=== PATIENT | female | born 1990 | race Caucasian/White ===

== ENCOUNTER 2019-03-05 12:15 | Outpatient (CLI) | payer OTHER ==
[~2019-03-05] VITALS: Ht 167.6 cm; Wt 99.9 kg
[2019-03-05 13:03] VITALS: BP 129/70; PULSE 68; RESP 18; Ht 167.6 cm; Wt 99.9 kg
[2019-03-05] MEDS ORDERED: PNV11TAB PO (13:05)
[2019-03-05] MEDS ORDERED: LACTATED RINGER'S 1,000 ML IV ONE ×2 (13:30→14:30)
--- NOTE | 2019-03-05 17:14 | PN ---
Triage Information Date/Time Reason for visit: Possible leakage of fluid Weeks of Gestation 38 weeks and 4 days /Para Diabetes: none Hypertention: none Objective Vital Signs Date Temp Pulse Resp B/P (MAP) Pulse Ox O2 O2 Flow FiO2 Time Delivery Rate 03/05/19 98.5 68 18 129/70 13:03 (89) Heart Rate: 140's Contractions: None Results/Medications Result Diagram: 03/05/19 1345 Results 24 hrs Laboratory Tests Test 03/05/19 12:30 03/05/19 13:45 Membranes Rupture NEGATIVE White Blood Count 8.9 Red Blood Count 3.67 L Hemoglobin 10.3 L Hematocrit 30.5 L Mean Corpuscular Volume 83.1 Mean Corpuscular Hemoglobin 28.1 L Mean Corpuscular Hemoglobin Concent 33.8 Red Cell Distribution Width 14.5 Platelet Count 229 Mean Platelet Volume 10.6 H Immature Granulocytes % 0.600 H Neutrophils % 78.5 H Lymphocytes % 15.4 Monocytes % 4.5 Eosinophils % 0.9 Basophils % 0.1 Nucleated Red Blood Cells % 0.0 Immature Granulocytes # 0.050 H Neutrophils # 7.0 Lymphocytes # 1.4 Monocytes # 0.4 Eosinophils # 0.1 Basophils # 0.0 Nucleated Red Blood Cells # 0.0 Disposition: Discharge Assessment/Plan 29 years old G3, P2 with single intrauterine at 38 weeks and 4 days complaining of possible leakage of fluid.She states good movement. She denies nausea, vomiting, shortness of breath, chest pain, headache, visual changes, vaginal bleeding. -FHR: No sign of metabolic acidosis- Category I -Contractions: None -Speculum exam performed, no leakage of fluid or gush gush of fluid seen. Nitrazine equivocal, ROM plus negative -SVE: 2/50/-2/cephalic/intact membrane. No cervical changes with 2 hours interval -ultrasound performed: Normal MIKI, BPP 8 out of 8 -Symptoms and sign of labor, preeclampsia, kick count discussed with patient, she voiced understanding. All of her questions answered. -Patient was discharged home in stable condition with the appropriate discharge instructions provided. I would like patient to have close follow-up with her primary physician or outpatient clinic in 1-2 days or return to triage for worsening symptoms or any other urgent concerns. LORENZO MADERA March 05, 2019 17:14
--- NOTE | 2019-03-05 17:59 | TRIAGE ---
OB Triage Datetime Report Generated by CPN: 03/05/2019 17:58 Datetime: 03/05/2019 16:34 Stage of : OB Triage Datetime: 03/05/2019 16:28 Labor Evaluation Frequency: 7-8 Monitor Mode: External Duration (sec)2399: 50-60 Quality: Mild Pattern: Normal: <= 5 Contractions in 10 Minutes Resting Tone [place]: Relaxed Monitor Mode: External US Variability: Moderate 6-25 bpm Accelerations: 10X10 Decelerations: None Category: Category I Pain Assessment Pain Scale: 1 Pain Presence: Intermittent Pain Type: Cramping Pain Location: Perineum Pain Goal: 3 Pain Relief Measures: Comfort Measures Datetime: 03/05/2019 16:16 Exam By: S CRISTOFER Datetime: 03/05/2019 16:11 Stage of : OB Triage Datetime: 03/05/2019 16:02 Stage of : OB Triage Datetime: 03/05/2019 15:31 Labor Evaluation Frequency: 12-15 Monitor Mode: External Quality: Mild Pattern: Normal: <= 5 Contractions in 10 Minutes Resting Tone [place]: Relaxed Heart Rate FHR Baseline Rate: 115 Monitor Mode: External US Variability: Moderate 6-25 bpm Accelerations: 10X10 Decelerations: None Category: Category I Pain Assessment Pain Scale: 0 Pain Presence: Intermittent Pain Type: Cramping Pain Location: Abdomen Pain Goal: 3 Pain Relief Measures: Comfort Measures Datetime: 03/05/2019 14:32 Labor Evaluation Frequency: 7-10 Monitor Mode: External Duration (sec)2399: 50-70 Quality: Mild Pattern: Normal: <= 5 Contractions in 10 Minutes Resting Tone [place]: Relaxed Heart Rate FHR Baseline Rate: 125 Monitor Mode: External US Variability: Moderate 6-25 bpm Accelerations: 10X10 Decelerations: None Category: Category I Pain Assessment Pain Scale: 0 Pain Presence: Intermittent Pain Type: Cramping Pain Location: Abdomen Pain Goal: 3 Pain Relief Measures: Comfort Measures Datetime: 03/05/2019 13:29 Labor Evaluation Frequency: 7-8 Monitor Mode: External Duration (sec)2399: 50-70 Quality: Mild Pattern: Normal: <= 5 Contractions in 10 Minutes Resting Tone [place]: Relaxed Heart Rate FHR Baseline Rate: 125 Monitor Mode: External US Variability: Moderate 6-25 bpm Accelerations: 10X10 Decelerations: None Category: Category I Pain Assessment Pain Scale: 0 Pain Presence: Intermittent Pain Type: Cramping Pain Location: Abdomen Pain Goal: 3 Pain Relief Measures: Comfort Measures Datetime: 03/05/2019 13:20 Stage of : OB Triage Datetime: 03/05/2019 13:06 Stage of : OB Triage Datetime: 03/05/2019 12:30 Stage of : OB Triage Assessment Type: Triage Maternal Assessment Level of Consciousness: Fully Conscious DTR's/Clonus: DTRs 2+; No Clonus Headache: Denies Blurred Vision: No Respiratory Effort: Unlabored; Regular Rhythm; Equal Expansion Breath Sounds, Left: Clear and Equal Breath Sounds, Right: Clear and Equal Nausea/Vomiting: Denies RUQ Epigastric Pain: Denies Facial Edema: None Temperature Route: Axillary Fall Risk Assessment History of Falling: (0) No Secondary Diagnosis: (0) No Ambulatory Aid: (0) Bedrest/Nurse Assist IV Therapy: (0) No Gait: (0) Normal/Bedrest/Immobile Mental Status: (0) Oriented to Own Ability Fall Score: 0 Fall Risk Score Definition: No Risk: No action required Labor Evaluation Frequency: 0 Monitor Mode: External Pattern: Normal: <= 5 Contractions in 10 Minutes Resting Tone [place]: Relaxed Interventions: Sterile Vaginal Exam Heart Rate FHR Baseline Rate: 135 Monitor Mode: External US Variability: Moderate 6-25 bpm Accelerations: 10X10 Decelerations: None Category: Category I Pain Assessment Pain Scale: 0 Pain Presence: None/Denies Pain Type: N/A Pain Goal: 3 Pain Relief Measures: Comfort Measures Vaginal Exam Dilatation (cms): 2.0 Effacement (%): 50 Station: -2 Exam By: Nati CRISTOFER Nitrazine: EQUIVOCAL Datetime: 03/05/2019 12:29 EGA: 38.4 Datetime: 03/05/2019 12:28 Time of Arrival: 03/05/2019 12:05 Arrived By: Ambulatory Arrived From: Home Chief Complaint: C/O POSS SROM AT 7PM LAST NIGHT, DENIES BLEEDING, AND OCCAS UC'S Movement: Present Contractions: Occasional Rupture of Membranes: Unsure Vaginal Bleeding: None Vaginal Discharge: Denies Recent Sexual Intercouse: Denies Abdominal Trauma: Not Applicable Patient Complaints: Cramping Time Provider Notified: 03/05/2019 13:20 Provider Notified: PENELOPE Initial Plan: MONITOR, NITRAZINE, ROM PLUS, EFW, MIKI, BPP, CBC, IV HYDRATION
== END 2019-03-05 17:00 | disposition home or self-care (01) ==
LOC: L-D 12:15 → OBT 12:15
PROVIDERS: ATTEND Obstetrics & Gynecology
DX: O41.93X0 Disorder of amniotic fluid and membranes, unspecified, third trimester, not applicable or unspecified (principal); Z3A.38 38 weeks gestation of pregnancy
CPT/HCPCS: 36415; 76815; 76818; 84112; 85025; 96360; 96361; G0463; J7120

== ENCOUNTER 2019-03-09 20:47 | Inpatient (IN) | payer OTHER ==
[~2019-03-09] VITALS: Ht 167.6 cm; Wt 102.7 kg
[~2019-03-09 20:47] MED LIST: PNV11TAB PO
[2019-03-09 21:25] VITALS: Ht 167.6 cm; Wt 102.7 kg
[2019-03-09 21:26] VITALS: BP 124/68; PULSE 80; RESP 18
--- NOTE | 2019-03-10 05:36 | HP ---
Date/Time of Note Date/Time of Note DATE: 03/10/19 TIME: 05:32 OB - History Hx of Present Free Text/Dictation 29-year-old 3 para 2 at 39 weeks and 1 day of gestation with estimated date of delivery March 15, 2019 Patient presents with chief complaint of uterine contractions She reports positive movement She denies any vaginal bleeding or leaking fluid GBS status is negative Estimated Due Date: March 15, 2019 : 3 Para: 2 Care: Good Care Past Family/Social History * Past Medical, Surgical, Family and Obstetric Histories reviewed from chart. OB Admission Exam Vital Signs Vital Signs Vital Signs Date Temp Pulse Resp B/P (MAP) Pulse Ox O2 O2 Flow FiO2 Time Delivery Rate 03/09/19 98.5 80 18 124/68 Room Air 21:26 (86) Physical Exam HEENT: WNL Heart: Rhythm Normal Lungs: Clear, Equal Abdomen: WNL Extremities: Normal Reflexes: Normal Cervical Dilatation: 2cm Effacement: 50% Station: -3 Membranes: Intact Heart Rate: 140's Accelerations: Accelerations Present Decelerations: No Decelerations Varibility: Moderate Contractions on Admission: 6-10 Minutes Apart Intensity: Mild Last 72 hours Lab Results PROCEDURE: Limited OB ultrasound CLINICAL INDICATION: Contractions. TECHNIQUE: Limited transabdominal obstetrical sonographic evaluation was performed to assess the amniotic fluid volume. COMPARISON: US PELVIS 03/05/2019 FINDINGS: There is a single living intrauterine gestation with cephalic presentation and fundal grade 2-3 placenta. There is no evidence of placenta previa or abruption. heart rate is 141 beats per minute. Amniotic fluid index is 11.5 cm, within normal limits. IMPRESSION: 1. Normal amniotic fluid index. RPTAT:HAJM Physician Ryan Date Time Electronically viewed and signed by Physician Ryan on 03/09/2019 23:48 RM/ CC: ALFONSO NEGRETE MD [phone] AMENDMENT: 03/10/2019 5:01:04 AM Jesus Manuel Acevedo M.d There is a voice recognition error in the report; the structures were not evaluated on the current exam, and which should read as follows: Structures: Not evaluated. PROCEDURE: US OB CLINICAL INDICATION: Third trimester with contractions. Estimated weight follow-up. TECHNIQUE: Multiple transabdominal sonographic images of the pelvis and gravid uterus were obtained. The images were reviewed on a PACS workstation. COMPARISON: US PELVIS 03/09/2019; US PELVIS 03/05/2019; US 03/05/2019 FINDINGS: Cervix: Not evaluated Gestation: Single viable intrauterine gestation. Cardiac activity: 154 beats per minute. Presentation: Cephalic Placenta: Location: Fundal Appearance: No previa or abruption. Amniotic Fluid: Visually appears low, where included; MIKI not evaluated Measurements: BPD = 9.33 cm, 38 weeks 0 days HC = 34.47 cm, 39 weeks 6 days AC = 36.84 cm, 40 weeks 5 days FL = 7.95 cm, 40 weeks 5 days Gestational Age: AUA estimated gestational age: . 39 weeks 6 days LMP estimated gestational age: 39 weeks 2 days AUA estimated date of delivery: 03/11/2019 The EFW = 4025+/-604 g (8 lb 14 oz +/- 1 lb 5 oz), 88.7 %ile based on Hadlock criteria Structures: The upper and lower limbs, four-chamber heart, intracranial contents, spine, stomach, kidneys, bladder, nose and lips, three-vessel cord, and cord insertion are visualized and without abnormality. IMPRESSION: 1. Single viable intrauterine gestation of 39 weeks 6 days, with estimated delivery date 03/11/2019, by ultrasound criteria. 2. Estimated weight 4025+/-604 g (8 lb 14 oz +/- 1 lb 5 oz), 88.7 %ile based on Hadlock criteria 3. Amniotic fluid subjectively appears low although was not fully evaluated nor was MIKI calculated. RPTAT: HSAF Akhil Acevedo Physician Date Time Electronically viewed and signed by Physician Anna on 03/10/2019 05:02 RF/ CC: BLAYNE DONNELLY MD [phone] OB Assessment/Plan Reason for admission: induction of labor (Induction/augmentation for suspected macrosomia) Induction Method: per Pitocin Protocol Other plan: Admit to labor and delivery Induction/augmentation per protocol Pain meds as needed Copies To: CC: ALFONSO NEGRETE MD ; BLAYNE DONNELLY MD March 10, 2019 05:36
[2019-03-10] MEDS ORDERED: METHYLERGONOVINE 0.2 MG INJ IM PRN (07:00)
[2019-03-10] MEDS ORDERED: BUTORPHANOL 2 MG INJ IV PRN (07:00)
[2019-03-10] MEDS ORDERED: CARBOPROST 250 MCG INJ IM PRN (07:00)
[2019-03-10] MEDS ORDERED: MISOPROSTOL 200 MCG TAB PR PRN (07:00)
[2019-03-10] MEDS ORDERED: OXYTOCIN 30 UNITS/LR 500 ML IV PRN (07:00)
[2019-03-10] MEDS ORDERED: OXYTOCIN 30 UNITS/LR 500 ML IV SCH ×3 (07:00→10:30)
[2019-03-10] MEDS ORDERED: LIDOCAINE 1% (MPF) 30 ML INJ INJ PRN (07:00)
[2019-03-10] MEDS: LACTATED RINGER'S 1,000 ML IV SCH ×3 (10:50→20:11)
--- NOTE | 2019-03-10 19:13 | PREAC ---
Date/Time of Note Date/Time of Note DATE: 03/10/19 TIME: 19:12 Anesthesia Eval and Record Evaluation Time Pre-Procedure Interview DATE: 03/10/19 TIME: 19:12 Age 29 Sex female NPO: 8 hrs Preoperative diagnosis intrauterine Planned procedure labor epidural Past Medical History Past Medical History: Includes : : (3), Para: (2), Gestational age: (39+) Surgery & Anesthesia Issues No known issue Meds Anticoagulation: No Beta Carly within 24 hr: No Reason Beta Carly not given: Pt. not on B-Carly Reported Medications [id number] ( 19) 1 Each Tablet, 1 TAB PO DAILY, TAB 03/05/19 Current Medications Lactated Ringer's 1,000 ml @ 125 mls/hr Q8H IV Last administered on 03/10/19at 13:54; Admin Dose 125 MLS/HR; Start 03/10/19 at 06:33 Butorphanol Tartrate (Stadol) 2 mg Q2H PRN IV .PAIN; Start 03/10/19 at 07:00 Lidocaine (Xylocaine 1% (Mpf)) 30 ml ONCE PRN INJ .EPISIOTOMY; Start 03/10/19 at 07:00 Oxytocin/Lactated Ringer's 500 ml @ 500 mls/hr ONCE POST IV ; Start 03/10/19 at 07:00 Oxytocin/Lactated Ringer's 500 ml @ 125 mls/hr POST IV ; Start 03/10/19 at 07:00 Ibuprofen (Motrin) 600 mg ONCE PRN PO .PAIN 1-5; Start 03/10/19 at 07:00 Oxytocin/Lactated Ringer's 500 ml @ 0 mls/hr ONCE PRN IV .VAGINAL BLEEDING; Start 03/10/19 at 07:00 Methylergonovine Maleate (Methergine) 0.2 mg ONCE PRN IM .VAGINAL BLEEDING; Start 03/10/19 at 07:00 Carboprost Tromethamine (Hemabate) 250 mcg ONCE PRN IM .VAGINAL BLEEDING; Start 03/10/19 at 07:00 Misoprostol (Cytotec) 1,000 mcg ONCE PRN [place] .VAGINAL BLEEDING; Start 03/10/19 at 07:00 Oxytocin/Lactated Ringer's 500 ml @ 0 mls/hr FOR AUGMENTATION IV Last administered on 03/10/19at 10:52; Admin Dose 1 MLS/HR; Start 03/10/19 at 10:30 Meds reviewed: Yes Allergies Coded Allergies: No Known Allergy (Unverified , 03/09/19) Allergies Reviewed: Yes Labs/Studies Labs Reviewed: Reviewed by anesthesiologist Result Diagram: 03/10/19 0700 Laboratory Tests 03/10/19 07:00 Blood Bank Test 03/10/19 07:00 Antibody Screen NEGATIVE Blood Type B POSITIVE Rh Immune Globulin Candidate NO test: N/A Pre-procedure Exam Last vitals Vital Signs Date Temp Pulse Resp B/P (MAP) Pulse Ox O2 O2 Flow FiO2 Time Delivery Rate 03/09/19 98.5 80 18 124/68 Room Air 21:26 (86) Airway: Adequate mouth opening, Adequate thyromental dist Mallampati: Mallampati II Teeth: Normal Lung: Normal Heart: Normal ASA Physical Status ASA physical status: 2 Emergency: None Planned Anesthetic Neuraxial: Epidural Planned Pain Management Epidural, Parenteral pain med Pre-operative Attestations Prior to commencing anesthesia and surgery, the patient was re-evaluated, there was verification of: *The patient's identity *The results of appropriate recent lab work and preoperative vital signs *The above evaluation not changing prior to induction *Anesthetic plan, risk benefits, alternative and complications discussed with patient/family; questions answered; patient/family understands, accepts and wishes to proceed. ASHWIN ANN MD March 10, 2019 19:13
[2019-03-10] MEDS ORDERED: FENTAnyl 2MCG/ML-ROPIV 0.2% 100 ML ONE (19:20)
[2019-03-10] MEDS ORDERED: NALOXONE (0.4 MG/ML) INJ IV PRN (19:30)
[2019-03-10] MEDS ORDERED: DIPHENHYDRAMINE 50 MG INJ IV PRN (19:30)
[2019-03-10] MEDS ORDERED: ONDANSETRON 4 MG INJ IV PRN (19:30)
[2019-03-10] MEDS ORDERED: ROPIVACAINE 0.2% 100ML BAG EPI SCH (19:30)
--- NOTE | 2019-03-10 19:52 | PAC ---
Date/Time of Note Date/Time of Note DATE: 03/10/19 TIME: 19:51 Post-Anesthesia Notes Post-Anesthesia Note Last documented vital signs Vital Signs Date Temp Pulse Resp B/P (MAP) Pulse Ox O2 O2 Flow FiO2 Time Delivery Rate 03/09/19 98.5 80 18 124/68 Room Air 21:26 (86) Activity: WNL Respiratory function: WNL Cardiovascular function: WNL Mental status: Baseline Pain reasonably controlled: Yes Hydration appropriate: Yes Nausea/Vomiting absent: Yes Comments BP: 128/70 HR: 88 RR: 16 T: 98 SaO2: 99% ASHWIN ANN MD March 10, 2019 19:52
[2019-03-11] MEDS: LACTATED RINGER'S 1,000 ML IV SCH (00:01)
[2019-03-11] MEDS ORDERED: FENTAnyl 2MCG/ML-ROPIV 0.2% 100 ML BAG EPI SCH (02:00)
[2019-03-11] MEDS ORDERED: FENTAnyl 2MCG/ML-ROPIV 0.2% 100 ML ONE (02:11)
[2019-03-11] MEDS: IBUPROFEN 600 MG TAB PO PRN ×2 (04:41→17:46)
[2019-03-11] MEDS ORDERED: OXYTOCIN 30 UNITS/LR 500 ML IV SCH (06:07)
[2019-03-11] MEDS: LACTATED RINGER'S 1,000 ML IV* SCH ×3 (06:07→22:07)
[2019-03-11] MEDS ORDERED: CARBOPROST 250 MCG INJ IM PRN (06:30)
[2019-03-11] MEDS ORDERED: NA PHOSPHATE/BIPHOS 133 ML ENEMA PR PRN (06:30)
[2019-03-11] MEDS ORDERED: METHYLERGONOVINE 0.2 MG INJ IM PRN (06:30)
[2019-03-11] MEDS ORDERED: ZOLPIDEM 5 MG TAB PO PRN (06:30)
[2019-03-11] MEDS ORDERED: MAGNESIUM HYDROXIDE 30ML CUP PO PRN (06:30)
[2019-03-11] MEDS ORDERED: METHYLERGONOVINE 0.2 MG TAB PO PRN (06:30)
[2019-03-11] MEDS ORDERED: MISOPROSTOL 200 MCG TAB PR PRN (06:30)
[2019-03-11] MEDS ORDERED: HYDROCODONE/APAP (5/325) TAB PO PRN ×2 (06:30)
[2019-03-11] MEDS ORDERED: IBUPROFEN 600 MG TAB PO PRN (06:30)
[2019-03-11] MEDS ORDERED: DIPHENHYDRAMINE 25 MG CAP PO PRN (06:30)
[2019-03-11] MEDS ORDERED: OXYTOCIN 30 UNITS/LR 500 ML IV PRN (06:30)
[2019-03-11] MEDS ORDERED: ONDANSETRON 4 MG INJ IV PRN (06:30)
[2019-03-11 06:41] VITALS: BP 134/73; PULSE 67; RESP 19
[2019-03-11 08:05] VITALS: BP 135/67; PULSE 75; RESP 18
[2019-03-11] MEDS: WITCH HAZEL/GLYCERIN PAD PR PRN (09:18)
[2019-03-11] MEDS: LANOLIN HPA 1 PKT TOP PRN (09:18)
[2019-03-11] MEDS: SENNA/DOCUSATE NA (8.6MG/50MG) TAB PO SCH ×2 (09:18→21:50)
[2019-03-11] MEDS: BENZOCAINE 20% 56 ML SPRAY TOP PRN (09:19)
[2019-03-11 12:15] VITALS: BP 122/74; PULSE 68; RESP 20
[2019-03-11 16:30] VITALS: BP 127/68; PULSE 74; RESP 20
[2019-03-11 20:40] VITALS: BP 115/66; PULSE 72; RESP 17
[2019-03-12 04:00] VITALS: BP 130/76; PULSE 74; RESP 18
--- NOTE | 2019-03-12 05:53 | PREOPHP ---
DATE OF ADMISSION: 03/10/2019 HISTORY OF PRESENT ILLNESS: This is a 29-year-old lady, 3, para 2, her EDC is 03/15/2019, at 39 and 1/7 weeks , admitted to labor and delivery area in early labor. She had car e at Dr. Augustine's office at [facility] and the care was uneventful. PAST PERSONAL HISTORY: No history of diabetes, TB, nor allergy. SOCIAL HISTORY: Patient does not smoke. She does not drink. MEDICATIONS: She does not take any drugs except her iron and vitamins. GYNECOLOGIC HISTORY: She had menarche at the age of 13, every 28 days interval, 3 to 4 days duration , and moderate in amount. FAMILY HISTORY: Noncontributory. She is 3, para 2. She had 2 normal deliveries. The largest baby weighed 7 pounds 11 ounces. REVIEW OF SYSTEMS: CARDIOVASCULAR: No chest pains. RESPIRATORY: No cough. GASTROINTESTINAL: No diarrhea, no vomiting. GENITOURINARY: No dysuria. PHYSICAL EXAMINATION: GENERAL: Reveals a conscious, coherent lady and in not acute distress. VITAL SIGNS: Her blood pressure 120/80, pulse rate 80 per minute, respirations 16 per minute. BREASTS, HEART AND LUNGS: Within normal limits. ABDOMEN: Soft, fundic height 39 cm. heart tones 140 per minute. PELVIC: Done on admission by nurse revealed the cervix to be 2 cm dilated, thick, station -2 in ceph alic presentation with the bag of water intact. EXTREMITIES: No pedal edema. ADMITTING DIAGNOSIS: A 39 and 1/7 weeks intrauterine in early labor. The patient had an O B ultrasound and the estimated weight was about 4025 grams, 8 pounds 14 ounces. The plans of abilio leyva were explained to the patient as to go for vaginal delivery. The risks, benefits, and altern atives to vaginal delivery, a was explained to the patient. The risks of explain ed. The risks of shoulder dystocia explained to the patient as well. The patient wanted to go for v aginal delivery, so the patient was observed followed by Pitocin augmentation at 3:30 p.m.. On 03/11, I reevaluated the patient. She was 3 cm dilated, 90% effaced, station 0 with the bag of water intact and bulging, so she had artificial rupture of membranes. scalp electrode and IUPC was inserted. She was continued on Pitocin augmentation and she was observed closely. During the night, she was noted to have some variable deceleration, so that she was given amnioinfusion. She received labor epidural as well and the patient progressed well. The variable deceleration disappeared with the amnioinfusion. Dictated By: ALFONSO NEGRETE MD NS/NTS Conf#: [id number] DID#: [id number] CC: JASON AUGUSTINE MD;*EndCC*
[2019-03-12] MEDS: LACTATED RINGER'S 1,000 ML IV* SCH ×2 (06:07→14:07)
--- NOTE | 2019-03-12 07:44 | OPR ---
DATE OF OPERATION: 03/11/2019 OPERATION PERFORMED: This is a 29-year-old lady, 3, para 2, EDC 03/15/2019 at 39-1/7 weeks, admitted in early labor. HISTORY OF PRESENT ILLNESS: See dictated history and physical. PHYSICAL EXAMINATION: See dictated history and physical. ADMITTING DIAGNOSIS: A 39 and 1/7 weeks intrauterine in early labor. PLANS OF DELIVERY AND PROGRESS OF LABOR: See dictated history and physical. The patient progressed well. She received labor epidural. She received amnioinfusion for variable deceleration. She progr essed well. She delivered on 03/11/2019 at 3:55 a.m. delivering a healthy baby boy, Apgars, weighing 4260 grams, 9 pounds 6 ounces over a first-degree midline perineal tear. The placenta was delivered spontaneously and complete. Manual exploration of the uterus revealed no membranes left behin d. The cervix, vagina and vulva were free of hematoma. The position was direct occiput anterior. T here were 3 vessels in the cord. The placenta was normal with a small shiny side and a pinkish maternal side. First first-degree midline perineal tear was repaired with continuous suture with 2- 0 chromic. The patient tolerated the delivery well. Estimated blood loss about 300 mL. Vital signs were stable during and after the delivery. Dictated By: ALFONSO CHOU/JERAD Conf#: [id number] DID#: [id number]
[2019-03-12 08:30] VITALS: BP 139/86; PULSE 78; RESP 18
[2019-03-12] MEDS: SENNA/DOCUSATE NA (8.6MG/50MG) TAB PO SCH ×2 (08:49→20:38)
[2019-03-12 13:05] VITALS: BP 117/65
[2019-03-12 15:15] VITALS: BP 133/86; PULSE 62; RESP 18
--- NOTE | 2019-03-12 17:00 | PN ---
Date/Time of Note Date/Time of Note DATE: 03/12/19 TIME: 16:58 Assessment/Plan VTE Prophylaxis Risk score (from Ns)>0 risk: 2 SCD applied (from [facility] [place]): No SCD contraindicated: low risk/ambulating Pharmacological prophylaxis: NA/contraindicated Pharm contraindication: low risk/ambulating Lines/Catheters IV C[facility] Type (from [facility] Peripheral IV Assessment/Plan Assessment/Plan POST DAY 1 CHRONIC IRON DEFICIENCY ANEMIA HOME TOMORROW RETURN TO CLINIC IN 2 WEEKS CONTINUE WITH VITAMINS OD AND FERROUS SULFATE PO TID DIET ADVISED COUNSELED INSTRUCTED CALL OFFICE IF THERE IS ANY PROBLEMS OR CONCERN Result Diagram: 03/12/19 0801 Results 24hrs Laboratory Tests Test 03/12/19 06:17 03/12/19 08:01 Lab Scanned Report REFERENCE LAB White Blood Count 9.8 # Red Blood Count 3.19 L Hemoglobin 9.0 L Hematocrit 27.4 L Mean Corpuscular Volume 85.9 Mean Corpuscular Hemoglobin 28.2 L Mean Corpuscular Hemoglobin Concent 32.8 Red Cell Distribution Width 14.5 Platelet Count 216 Mean Platelet Volume 10.9 H Immature Granulocytes % 0.700 H Neutrophils % 75.1 Lymphocytes % 18.5 Monocytes % 4.4 Eosinophils % 1.0 Basophils % 0.3 Nucleated Red Blood Cells % 0.0 Immature Granulocytes # 0.070 H Neutrophils # 7.3 Lymphocytes # 1.8 Monocytes # 0.4 Eosinophils # 0.1 Basophils # 0.0 Nucleated Red Blood Cells # 0.0 Subjective 24 Hr Interval Summary Free Text/Dictation FEELS GOOD, GOOD URINE OUTPUT, GOOD BOWEL MOVEMENT Exam/Review of Systems Exam Vitals Vital Signs Date Temp Pulse Resp B/P (MAP) Pulse Ox O2 O2 Flow FiO2 Time Delivery Rate 03/12/19 117/65 13:05 (82) 03/12/19 98.7 78 18 High Flow 08:30 Intake and Output 03/11/19 03/11/19 03/12/19 1515:00 23:00 07:00 IntakeIntake Total 1225 ml 200 ml 340 ml OutputOutput Total 1600 ml BalanceBalance -375 ml 200 ml 340 ml Exam VITAL SIGNS STABLE: YES AFEBRILE: YES BREAST NOT ENGORGED, NON-TENDER, NO APPRECIABLE MASS: YES LUNGS CLEAR, NO RALES, WHEEZES, RHONCHI: YES SINUS RHYTHM WITHOUT MURMUR: YES ABDOMEN: NON-TENDER FUNDUS: BELOW UMBILICUS BOWEL SOUNDS: PRESENT UTERUS: FIRM TEAR HEALING WELL [place]: LIGHT DEEP TENDON REFLEXES: 0 EXTREMITIES: NO CALF TENDERNESS EDEMA SCALE: NONE Results Results 24hrs Laboratory Tests Test 03/12/19 06:17 03/12/19 08:01 Lab Scanned Report REFERENCE LAB White Blood Count 9.8 # Red Blood Count 3.19 L Hemoglobin 9.0 L Hematocrit 27.4 L Mean Corpuscular Volume 85.9 Mean Corpuscular Hemoglobin 28.2 L Mean Corpuscular Hemoglobin Concent 32.8 Red Cell Distribution Width 14.5 Platelet Count 216 Mean Platelet Volume 10.9 H Immature Granulocytes % 0.700 H Neutrophils % 75.1 Lymphocytes % 18.5 Monocytes % 4.4 Eosinophils % 1.0 Basophils % 0.3 Nucleated Red Blood Cells % 0.0 Immature Granulocytes # 0.070 H Neutrophils # 7.3 Lymphocytes # 1.8 Monocytes # 0.4 Eosinophils # 0.1 Basophils # 0.0 Nucleated Red Blood Cells # 0.0 Medications Medication Current Medications Ibuprofen (Motrin) 600 mg ONCE PRN PO .PAIN 1-5 Last administered on 03/11/19at 17:46; Admin Dose 600 MG; Start 03/10/19 at 07:00 Oxytocin/Lactated Ringer's 500 ml @ 0 mls/hr ONCE PRN IV .VAGINAL BLEEDING; Start 03/10/19 at 07:00 Misoprostol (Cytotec) 1,000 mcg ONCE PRN [place] .VAGINAL BLEEDING; Start 03/10/19 at 07:00 Methylergonovine Maleate (Methergine) 0.2 mg Q6H PRN PO .VAGINAL BLEED; Start 03/11/19 at 06:30 Ibuprofen (Motrin) 600 mg Q6 PRN PO MILD PAIN LEVEL 1-3; Start 03/11/19 at 06:30 Acetaminophen/ Hydrocodone Bitart (Remlap (5/325)) 1 tab Q4H PRN PO MODERATE PAIN LEVEL 4-6 Last administered on 03/11/19at 13:08; Admin Dose 1 TAB; Start 03/11/19 at 06:30 Acetaminophen/ Hydrocodone Bitart (Remlap (5/325)) 2 tab Q4H PRN PO SEVERE PAIN LEVEL 7-10; Start 03/11/19 at 06:30 Diphenhydramine HCl (Benadryl) 25 mg Q6H PRN PO .PRUTITUS; Start 03/11/19 at 06:30 Zolpidem Tartrate (Ambien) 5 mg QHS PRN PO .INSOMNIA; Start 03/11/19 at 06:30 Senna/Docusate Sodium (Senokot-S) 1 tab BID PO Last administered on 03/12/19at 08:49; Admin Dose 1 TAB; Start 03/11/19 at 09:00 Magnesium Hydroxide (Milk Of Mag) 30 ml Q12H PRN PO .CONSTIPATION; Start 03/11/19 at 06:30 Sodium Biphosphate/ Sodium Phosphate (Fleet Enema) 133 ml DAILY PRN [place] .CONSTIPATION; Start 03/11/19 at 06:30 Witch Letty/ Glycerin (Tucks Pads) 1 pad BEDSIDE MEDICATION PRN [place] .HEMORRHOID/EPISIOTOMY PAIN Last administered on 03/11/19at 09:18; Admin Dose 1 PAD; Start 03/11/19 at 06:30 Benzocaine (Dermoplast [place]) 1 spray BEDSIDE MEDICATION PRN [place] .HEMMORHOID/EPISIOTOMY PAIN Last administered on 03/11/19at 09:19; Admin Dose 1 SPRAY; Start 03/11/19 at 06:30 Lanolin (Lanolin Hpa) 1 applic BEDSIDE MEDICATION PRN TOP .NIPPLES Last administered on 03/11/19at 09:18; Admin Dose 1 APPLIC; Start 03/11/19 at 06:30 Measles/Mumps/ Rubella Vaccine Live (Mmr Ii Vaccine) 0.5 ml ONCE ONCE SC* ; Start 03/13/19 at 09:00; Stop 03/13/19 at 09:01 Diphtheria/ Tetanus/Acell Pertussis (Adacel) 0.5 ml ONCE ONCE IM* ; Start 03/13/19 at 09:00; Stop 03/13/19 at 09:01 Varicella Virus Vaccine Live (Varivax Vaccine With Diluent) 1,350 unit ONCE ONCE SC* ; Start 03/13/19 at 09:00; Stop 03/13/19 at 09:01 Oxytocin/Lactated Ringer's 500 ml @ 0 mls/hr ONCE PRN IV .VAGINAL BLEEDING; Start 03/11/19 at 06:30 Methylergonovine Maleate (Methergine) 0.2 mg ONCE PRN IM .VAGINAL BLEEDING; Start 03/11/19 at 06:30 Carboprost Tromethamine (Hemabate) 250 mcg ONCE PRN IM .VAGINAL BLEEDING; Start 03/11/19 at 06:30 ALFONSO NEGRETE MD March 12, 2019 17:00
[2019-03-12 20:30] VITALS: BP 122/60; PULSE 75; RESP 17
[2019-03-12] MEDS ORDERED: BISACODYL 10 MG SUPP PR ONE (20:30)
[2019-03-12] MEDS ORDERED: MAGNESIUM HYDROXIDE 30ML CUP PO ONE (20:30)
[2019-03-12] MEDS: BENZOCAINE 20% 56 ML SPRAY TOP PRN (20:59)
[2019-03-13 04:00] VITALS: BP 130/85; PULSE 65; RESP 18
[2019-03-13 08:30] VITALS: BP 135/84; PULSE 70; RESP 19
[2019-03-13] MEDS ORDERED: VARICELLA VACCINE LIVE/PF 1,350 UNIT/0.5 ML ML SC* ONE (09:00)
[2019-03-13] MEDS ORDERED: DIPHTH/TET/ACEL PERTUSS (ADULT) 0.5 ML VIAL IM* ONE (09:00)
[2019-03-13] MEDS ORDERED: MEASLES,MUMPS,RUBELLA VACCINE INJ SC* ONE (09:00)
[2019-03-13] MEDS: SENNA/DOCUSATE NA (8.6MG/50MG) TAB PO SCH (11:35)
[2019-03-13] MEDS: WITCH HAZEL/GLYCERIN PAD PR PRN (11:36)
[2019-03-13] MEDS: IBUPROFEN 600 MG TAB PO PRN (11:36)
[2019-03-13] MEDS: LANOLIN HPA 1 PKT TOP PRN (11:36)
--- NOTE | 2019-03-14 14:56 | DELSUM ---
Delivery Summary A-C Datetime Report Generated by CPN: 03/14/2019 14:56 DELIVERY PERSONNEL Hair Machine Operator: Merissa Espinal MATERNAL INFORMATION Delivery Anesthesia: Epidural Medications in Delivery: oxytocin 30 units in LR Delivery QBL (ml): 300 Placenta Cultured: No Maternal Complications: Prolong Labor >20Hrs LABOR SUMMARY EDC: 03/15/2019 00:00 No. Babies in Womb: 1 Attempted: No Labor Anesthesia: Epidural LABOR INFORMATION Reason for Induction: Macrosomia Onset of Labor: 03/09/2019 16:00 Complete Dilatation: 03/11/2019 03:35 Oxytocin: Induction Group B Beta Strep: Negative Antibiotics # of Doses: 0 Steroids Given: None Reason Steroids Not Administered: Not Applicable MEMBRANES Membranes Rupture Method: Spontaneous Rupture of Membranes: 03/10/2019 15:30 Length of Rupture (hr): 12.42 Amniotic Fluid Color: Clear Amniotic Fluid Amount: Moderate Amniotic Fluid Odor: None STAGES OF LABOR Stage 1 hr: 35 Stage 1 min: 35 Stage 2 hr: 0 Stage 2 min: 20 Stage 3 hr: 0 Stage 3 min: -18 Total Time in Labor hr: 35 Total Time in Labor min: 37 VAGINAL DELIVERY Episiotomy: None Laceration Extension: First Degree Laceration Type: Perineal Laceration Repair: Yes Initial Vag Sponge Count: 10 Final Vag Sponge Count: 10 Initial Vag Sharps Count: 1 Final Vag Sharps Count: 2 Sponge Count Correct: Yes Sharps Count Correct: Yes BABY A INFORMATION Delivery Date/Time: 03/11/2019 03:55 Method of Delivery: Vaginal Born in Route : No : N/A Forceps: N/A Vacuum Extraction: N/A Shoulder Dystocia : N/A SHOULDER DYSTOCIA BABY A Delivery Date/Time: 03/11/2019 03:55 PRESENTATION/POSITION BABY A Presentation: Cephalic Cephalic Presentation: Vertex Vertex Position: Right Occipital Anterior Breech Presentation: N/A PLACENTA INFORMATION BABY A Placenta Delivery Time : 03/11/2019 03:37 Placenta Method of Delivery: Manual Removal Placenta Status: Delivered SCORES BABY A Heart Rate 1 min: >100 bpm Resp Effort 1 min: Good Cry Reflex Irritability 1 min: Cough/Sneeze/Pulls Away Muscle Tone 1 min: Active Motion Color 1 min: Blue/Pale Resuscitation Effort 1 min: Tactile Stimulation SCORE 1 MIN: 8 Heart Rate 5 min: >100 bpm Resp Effort 5 min: Good Cry Reflex Irritability 5 min: Cough/Sneeze/Pulls Away Muscle Tone 5 min: Active Motion Color 5 min: Body [place], Extremit Blue Resuscitation Effort 5 min: N/A SCORE 5 MIN: 9 INFANT INFORMATION BABY A Gestational Age at Delivery: 39.3 Gestational Status: Full Term- 39- 40.6 Weeks Outcome : Liveborn Condition : Stable Infant Sex: Male IDENTIFICATION/MEDS BABY A ID Band Number: [id number] ID Band Location: Right Leg; Left Arm Sensor Applied: Yes Sensor Number: [id number] Sensor Location : Cord Clamp Vitamin K Given : Not Given Erythromycin Given: Not Given WEIGHT/LENGTH BABY A Infant Birthweight (gm): 4260 Weight (lb): 9 Weight (oz): 6 Infant Length (in): 21.00 Length (cm): 53.34 CORD INFORMATION BABY A No. Cord Vessels: 3 Nuchal Cord : N/A Cord Blood Taken: Yes Banking/Donate Info: n/a Suction: Mouth; Nose ASSESSMENT BABY A Infant Complications: Multiple Variable Decels Physical Findings at Delivery: Molding of the Head Respirations: Appears Normal Delivery Driver Assistant/ALS Called : No Care By: annalise UNGER Transferred To: Remains with Mother
--- NOTE | 2019-03-16 05:52 | DS ---
DATE OF ADMISSION: 03/10/2019 DATE OF DISCHARGE: 03/13/2019 This is a 29-year-old lady, 3, para 2, EDC 03/15/2019 at 39 and 1/7 weeks, admitted in early labor. HISTORY OF PRESENT ILLNESS: See dictated history and physical. PHYSICAL EXAMINATION: See dictated history and physical. ADMITTING DIAGNOSIS: 39 and 1/7 weeks intrauterine in labor. PROGRESS OF LABOR: See dictated history and physical. Patient was given Pitocin augmentation and sh e received labor epidural as well. She had some variable deceleration and disappeared with . S he progressed well. She received labor epidural. She delivered in 03/11/2019 at 3:55 a.m. deliverin g a healthy baby boy, Apgars 9 and 9, weighing 9 pounds 6 ounces over a first-degree midline perineal tear. She tolerated the delivery well. She did have good course. She had good bowel mo vement . She was discharged home on the second day on general diet and activity was restricted. She was counseled. She was instructed. She was discharged home in good and stable condition. The h ematocrit on discharge was 26.8, hemoglobin 8.9. FINAL DIAGNOSES: Chronic iron deficiency anemia. 39-2/7 weeks intrauterine in labor and d elivered and suspected macrosomia. Dictated By: ALFONSO NEGRETE MD NS/NTS Conf#: [id number] DID#: [id number] CC: JASON AUGUSTINE MD;*EndCC*
== END 2019-03-13 14:55 | disposition home or self-care (01) | DRG 807 ==
LOC: OBT 20:47 → L-D 20:47 → OBT 03-10 06:15 → L-D 03-10 06:15 → PP1 03-11 06:19
PROVIDERS: ADMIT Obstetrics & Gynecology; ATTEND Obstetrics & Gynecology
PROC: 10E0XZZ Delivery of Products of Conception, External Approach (ICD-10-PCS; principal; 2019-03-11)
DX: O80 Encounter for full-term uncomplicated delivery (principal); Z37.0 Single live birth; Z3A.39 39 weeks gestation of pregnancy
CPT/HCPCS: 62322; 76815; 76816; 85025; 85610; 85730; 86592; 86850; 86900; 86901; 87340; 90716; G0463; J2590; J3010; J7120